=== PATIENT | female | born 1970 | race Caucasian/White ===

== ENCOUNTER 2017-07-11 22:23 | Emergency (ER) | payer BC ==
[~2017-07-11] VITALS: Ht 162.6 cm; Wt 109.2 kg
[~2017-07-11 22:23] MED LIST: PROAIR HFA8.5 GM IH; TRAMADOL HCL50 MG PO
[2017-07-11 23:04] LABS: HEMATOCRIT 42.1 % (36.0-46.0); MCH 29.4 PG (29.0-34.0); MCHC 32.8 G/DL (30.0-36.0); MCV 89.8 FL (83-99); MEAN PLAT.VOLUME 9.1 uM^3 (9.5-12.4); PLATELET COUNT 360 K/uL (156-360); RBC DIS.WIDTH-CV 13.6 % (11.8-14.6); RBC DIS.WIDTH-SD 44.5 % (39-53); RED BLOOD COUNT 4.69 M/uL (3.80-5.20)
[2017-07-11 23:32] LABS: ANION GAP 9 MEQ/L (2-14); CHLORIDE 106 MEQ/L (99-109); GFR ESTIMATE (CALCULATED) > 59 mL/min/; GLUCOSE 104 mg/dL (70-99); POTASSIUM 3.8 MEQ/L (3.7-5.4); SAMPLE HEMOLYSIS CHECK 0; SAMPLE ICTERIC CHECK 0; SAMPLE LIPEMIA CHECK 1; SODIUM 141 MEQ/L (136-147); UREA NITROGEN (BUN) 14 mg/dL (9-23)
[2017-07-12] MEDS ORDERED: PREDNISONE20 MG PO (01:42)
[2017-07-12] MEDS ORDERED: PROVENTIL HFA6.7 GM IH (01:42)
[2017-07-12] MEDS ORDERED: SALINE NASAL SP45 ML BOTH NARES (01:42)
[2017-07-12 02:04] VITALS: BP 141/83
== END 2017-07-12 02:05 | disposition home or self-care (01) ==
LOC: EME 22:23
DX: J45.909 Unspecified asthma, uncomplicated (principal); R06.02 Shortness of breath; R05 Cough; D86.9 Sarcoidosis, unspecified; I10 Essential (primary) hypertension; Z88.8 Allergy status to other drugs, medicaments and biological substances
CPT/HCPCS: 71020; 80048; 85027; 93005; 94640; 99281; 99285; J7512

== ENCOUNTER 2017-09-24 16:03 | Emergency (ER) | payer BC ==
[~2017-09-24] VITALS: Ht 160 cm; Wt 107.3 kg
[~2017-09-24 16:03] MED LIST changes: +PREDNISONE20 MG PO; +PROVENTIL HFA6.7 GM IH; +SALINE NASAL SP45 ML BOTH NARES
[2017-09-24] MEDS ORDERED: MOTRIN800 MG PO (17:02)
[2017-09-24] MEDS ORDERED: ZOFRAN4 MG PO (17:02)
[2017-09-24] MEDS ORDERED: MOTRIN600 MG PO (19:00)
[2017-09-24 19:22] VITALS: BP 137/101
== END 2017-09-24 19:23 | disposition home or self-care (01) ==
LOC: EME 16:03
DX: S06.0X0A Concussion without loss of consciousness, initial encounter (principal); S00.03XA Contusion of scalp, initial encounter; M54.2 Cervicalgia; W01.198A Fall on same level from slipping, tripping and stumbling with subsequent striking against other object, initial encounter
CPT/HCPCS: 70450; 99281; 99284

== ENCOUNTER 2017-11-30 05:49 | Emergency (ER) | payer BC ==
[~2017-11-30] VITALS: Ht 162.6 cm; Wt 104.2 kg
[~2017-11-30 05:49] MED LIST changes: +MOTRIN600 MG PO; +MOTRIN800 MG PO; +ZOFRAN4 MG PO
[2017-11-30 07:04] LABS: HEMATOCRIT 44.5 % (36.0-46.0); HEMOGLOBIN 14.8 G/DL (11.9-15.5); MCH 29.6 PG (29.0-34.0); MCHC 33.3 G/DL (30.0-36.0); PLATELET COUNT 343 K/uL (156-360); RBC DIS.WIDTH-CV 13.2 % (11.8-14.6); WHITE BLOOD COUNT 6.8 K/uL (4.1-10.2)
[2017-11-30 07:30] LABS: ALBUMIN 4.2 G/DL (3.2-4.8); CHLORIDE 111 MEQ/L (99-109); POTASSIUM 4.1 MEQ/L (3.7-5.4); SODIUM 144 MEQ/L (136-147); TOTAL BILIRUBIN 0.5 MG/DL (0.0-1.0)
[2017-11-30 07:35] LABS: ALKALINE PHOSPHATASE 90 IU/L (3-129); ALT (GPT) 50 IU/L (3-49); AST (GOT) 54 IU/L (2-34); CREATININE 0.8 MG/DL (0.6-1.3); GFR ESTIMATE (CALCULATED) > 59 mL/min/; GLUCOSE 112 mg/dL (70-99); TOTAL PROTEIN 6.9 G/DL (6.4-8.3); UREA NITROGEN (BUN) 13 mg/dL (9-23)
[2017-11-30 07:56] LABS: QUANTITATIVE HCG < 4.0 MIU/ML
[2017-11-30 08:19] LABS: APPEARANCE SL.HAZY ((CLEAR)); BILIRUBIN NEGATIVE; BLOOD NEGATIVE; COLOR YELLOW ((YELLOW)); GLUCOSE (STRIP) NEGATIVE; KETONES NEGATIVE; LEUKOCYTES NEGATIVE; NITRITE NEGATIVE; PROTEIN (STRIP) 30; SPECIFIC GRAVITY 1.018 (1.000-1.030); UROBILINOGEN 0.2 MG/DL (0.2-1.0)
[2017-11-30 08:26] LABS: BACTERIA NONE SEEN /HPF; EPITHELIAL CELLS NONE SEEN /HPF; MUCUS TRACE /LPF; RED BLOOD CELLS 0-5 /HPF (0-5); UCUL ADDED? NO; WHITE BLOOD CELLS 0-5 /HPF (0-5)
[2017-11-30] MEDS ORDERED: ZOFRAN4 MG PO (09:43)
[2017-11-30] MEDS ORDERED: BENTYL20 MG PO (09:43)
[2017-11-30] MEDS ORDERED: IMODIUM A-D2 M2 PO (09:43)
[2017-11-30 10:38] VITALS: BP 121/80
== END 2017-11-30 10:39 | disposition home or self-care (01) ==
LOC: EME 05:49
DX: R10.10 Upper abdominal pain, unspecified (principal); R11.2 Nausea with vomiting, unspecified; R19.7 Diarrhea, unspecified; R05 Cough; Z87.442 Personal history of urinary calculi; Z90.49 Acquired absence of other specified parts of digestive tract
CPT/HCPCS: 71045; 80053; 81003; 84702; 85027; J1885; J2405; J7030

== ENCOUNTER 2018-05-04 09:59 | Emergency (ER) | payer BC ==
[~2018-05-04] VITALS: Ht 162.6 cm; Wt 105.3 kg
[~2018-05-04 09:59] MED LIST changes: +BENTYL20 MG PO; +IMODIUM A-D2 M2 PO
[2018-05-04 10:39] LABS: HEMATOCRIT 43.3 % (36.0-46.0); HEMOGLOBIN 14.8 G/DL (11.9-15.5); MCH 29.8 PG (29.0-34.0); MCHC 34.2 G/DL (30.0-36.0); MCV 87.3 FL (83-99); PLATELET COUNT 353 K/uL (156-360); RBC DIS.WIDTH-CV 13.3 % (11.8-14.6); RBC DIS.WIDTH-SD 42.5 % (39-53); RED BLOOD COUNT 4.96 M/uL (3.80-5.20); WHITE BLOOD COUNT 5.2 K/uL (4.1-10.2)
[2018-05-04 10:48] LABS: CHLORIDE 108 mEq/L (99-109); POTASSIUM 4.1 mEq/L (3.7-5.4); SODIUM 143 mEq/L (136-147)
[2018-05-04 10:50] LABS: GLUCOSE 100 mg/dL (70-99)
[2018-05-04 10:54] LABS: CREATININE 0.9 mg/dL (0.6-1.3); GFR ESTIMATE (CALCULATED) > 59 mL/min/
[2018-05-04 10:55] LABS: UREA NITROGEN (BUN) 17 mg/dL (9-23)
[2018-05-04 11:00] LABS: TROP-I INTERPRETATION NEGATIVE; TROPONIN-I < 0.01 ng/mL (0.0-0.30)
[2018-05-04 13:43] LABS: TROP-I INTERPRETATION NEGATIVE; TROPONIN-I < 0.01 ng/mL (0.0-0.30)
[2018-05-04 14:13] VITALS: BP 148/102
== END 2018-05-04 14:14 | disposition home or self-care (01) ==
LOC: EME 09:59
PROVIDERS: Emergency Medicine
DX: R07.9 Chest pain, unspecified (principal); R94.31 Abnormal electrocardiogram [ECG] [EKG]; I10 Essential (primary) hypertension; I25.2 Old myocardial infarction; Z87.442 Personal history of urinary calculi; Z87.19 Personal history of other diseases of the digestive system; Z87.39 Personal history of other diseases of the musculoskeletal system and connective tissue; Z83.3 Family history of diabetes mellitus; Z82.3 Family history of stroke; Z83.2 Family history of diseases of the blood and blood-forming organs and certain disorders involving the immune mechanism; Z98.890 Other specified postprocedural states; Z90.49 Acquired absence of other specified parts of digestive tract; Z88.2 Allergy status to sulfonamides; Z88.5 Allergy status to narcotic agent
CPT/HCPCS: 71046; 80048; 84484; 85027; 93005